=== PATIENT | female | born 1980 | race Caucasian/White ===

== ENCOUNTER 2021-03-23 00:02 | Emergency (ER) | payer BC, SELFPAY ==
[2021-03-23] MEDS ORDERED: Ondansetron PF 4 MG/2 ML Vial ONE (01:30)
[2021-03-23] MEDS ORDERED: Morphine 4 MG/ML VIAL ONE ×2 (01:30→04:57)
[2021-03-23] MEDS ORDERED: Ketorolac Tromethamine 30 MG/ML VIAL ONE (01:30)
[2021-03-23 01:51] LABS: Bilirubin Neg (Negative); Blood, Urine 250 (Negative); Clarity Clear (Clear); Glucose, Urine (Dipstick) Normal (Negative); Ketone, Urine Negative (Negative); Leukocyte 25 (Negative); Nitrite Negative (Negative); Protein, Urine (Dipstick) 15 mg/dl (Neg-Trace); Urobilinogen Normal mg/dL (Less than 2)
[2021-03-23 02:00] LABS: #Basophils 0.1 10x3/uL (0.0-0.2); #Eosinphils 0.1 10x3/uL (0.0-0.5); #Monocytes 0.6 10x3/uL (0.0-1.1); #Neutrophils 10.6 10x3/uL (1.5-8.4); %Basophils 0.6 % (0.0-2.0); %Eosinophils 0.6 % (0.0-6.0); %Lymphocytes 7.6 % (18.0-47.0); Hemoglobin 7.7 g/dL (12.0-15.5); Mean Corpuscular HGB CONC 26.4 g/dL (32.0-36.0); Mean Corpuscular Hemoglobin 15.6 pg (27.0-33.0); Mean Corpuscular Volume 59.2 fl (81.6-98.3); Mean Platelet Volume 9.3 fl (7.4-10.4); Platelet Count 314 10x3/uL (150-450); RBC Distribution Width 21.7 % (11.5-14.5); Red Blood Cell (RBC) Count 4.93 10x6/uL (3.90-5.03); White Blood Cell (WBC) Count 12.3 10x3/uL (3.5-10.5)
[2021-03-23 02:01] LABS: BHCG - Serum Negative (NEGATIVE); Pregs Control Background? CLEAR/WHITE (CLR/WHITE); Pregs Control Bar Appear? YES (CONTROL BAR)
[2021-03-23 02:06] LABS: ALT (SGPT) 9 U/L (8-55); AST (SGOT) 17 U/L (5-34); Albumin 4.1 g/dL (3.5-5.0); Alkaline Phosphatase 77 U/L (40-110); Anion Gap 12 mmol/L (10-20); BUN (Urea Nitrogen) 13 mg/dL (7.0-18.7); Bilirubin, Total 0.2 mg/dL (0.2-1.2); Calc. Creatinine Clearance 0 mL/min (70-130); Calcium 9.1 mg/dL (7.8-10.44); Carbon Dioxide 24 mmol/L (22-29); Chloride 106 mmol/L (98-107); Globulin 2.8 g/dL (2.4-3.5); Glucose 110 mg/dL (70-105); Lipase 33 U/L (8-78); Potassium 3.7 mmol/L (3.5-5.1); Protein, Total 6.9 g/dL (6.0-8.3); Sodium 138 mmol/L (136-145)
[2021-03-23 02:13] LABS: Bacteria/HPF Rare-Few HPF (None Seen); RBC/HPF Greater than 50 HPF (0-3); Squamous Epithelial 0-3 HPF (0-3)
[2021-03-23 02:15] LABS: SARS-CoV-2 NAA Rapid Test Not Detected (NotDetected)
[2021-03-23] MEDS ORDERED: cefTRIAXone\\ROCEPHIN 1 GM VIAL ONE (02:54)
[2021-03-23 07:11] LABS: Hypochromia MODERATE=16-30 cells (100X) (0-5/hpf); Macrocytosis SLIGHT = 6-15 cells (100X) (0-5/hpf); Microcytosis MARKED = >30 cells (100X) (0-5/hpf); Platelet Morphology Comment Appears Adequate; Polychromasia SLIGHT = 2-3 cells (100X) (0-2/hpf)
[2021-03-23 07:50] LABS: Anisocytosis SLIGHT = 6-15 cells (100X) (0-5/hpf)
== END 2021-03-23 05:15 | disposition home or self-care (01) ==
LOC: CSHERS 00:02
DX: N10 Acute pyelonephritis (principal); Z20.822 Contact with and (suspected) exposure to COVID-19; I48.91 Unspecified atrial fibrillation
CPT/HCPCS: 0240U; 74176; 80053; 81003; 81015; 83690; 84703; 85025; 96365; 96375; 96376; J0696; J1885; J2270; J2405